=== PATIENT | female | born 1985 | race Caucasian/White ===

== ENCOUNTER → 2016-10-09 | Outpatient (CLI) | payer OTHER ==
[2012-04-07 01:58] VITALS: BP 89/53
== END ==
LOC: VAS 16:25
DX: I34.0 Nonrheumatic mitral (valve) insufficiency (principal); I07.1 Rheumatic tricuspid insufficiency

== ENCOUNTER → 2020-01-03 | Outpatient (CLI) | payer OTHER ==
[2012-04-07 01:58] VITALS: BP 89/53
[2020-01-03 08:58] LABS: EOS # 0.4 (0.04-0.40); HEMATOCRIT 41.6 % (37.0-47.0); HEMOGLOBIN 13.5 g/dL (12.5-16.0); LYMPH# 1.8 (1.50-4.00); MEAN CELL VOLUME 89 fl (78-100); MEAN CORPUSCULAR HEMOGLOBIN 29 pg (27-31); MEAN CORPUSCULAR HGB CONC 33 g/dL (33-37); MEAN PLATELET VOLUME 11.9 fl (7.4-10.4); MONO # 0.6 (0.20-0.80); NEU # 4.4 (1.40-6.50); PLATELET COUNT 151 K/mm3 (130-400); RED BLOOD COUNT 4.69 M/mm3 (4.10-5.30); RED CELL DISTRIBUTION WIDTH 12.7 % (11.5-14.5); WHITE BLOOD COUNT 7.3 K/mm3 (4.8-10.8)
[2020-01-03 09:04] LABS: POTASSIUM 4.2 mmol/L (3.5-5.1)
[2020-01-03 09:05] LABS: ALBUMIN 4.3 g/dL (3.5-5.0)
[2020-01-03 09:07] LABS: TOTAL PROTEIN 6.9 g/dL (6.4-8.3)
[2020-01-03 09:09] LABS: TOTAL BILIRUBIN 0.7 mg/dL (0.2-1.2)
[2020-01-03 09:11] LABS: URINE APPEARANCE CLEAR; URINE BILIRUBIN NEGATIVE (NEGATIVE); URINE BLOOD TRACE (NEGATIVE); URINE COLOR YELLOW; URINE GLUCOSE NEGATIVE (NEGATIVE); URINE KETONE NEGATIVE (NEGATIVE); URINE LEUKOCYTE ESTERASE NEGATIVE (NEGATIVE); URINE MUCUS PRESENT (NOT PRESENT); URINE NITRATE NEGATIVE (NEGATIVE); URINE PROTEIN(semi-quant) TRACE mg/dL (NEGATIVE); URINE UROBILINOGEN NORMAL (NORMAL)
== END ==
LOC: LAB 08:44
PROVIDERS: Nurse Practitioner Family
DX: Z01.419 Encounter for gynecological examination (general) (routine) without abnormal findings (principal); I34.1 Nonrheumatic mitral (valve) prolapse; Z86.2 Personal history of diseases of the blood and blood-forming organs and certain disorders involving the immune mechanism; E03.9 Hypothyroidism, unspecified

== ENCOUNTER → 2020-01-09 | Outpatient (CLI) | payer OTHER ==
[2012-04-07 01:58] VITALS: BP 89/53
== END ==
LOC: LAB 12:16
DX: Z20.828 Contact with and (suspected) exposure to other viral communicable diseases (principal)

== ENCOUNTER → 2020-01-09 | Outpatient (CLI) | payer OTHER ==
[2012-04-07 01:58] VITALS: BP 89/53
== END ==
LOC: VAS 15:37 → RAD 15:45
DX: I08.1 Rheumatic disorders of both mitral and tricuspid valves (principal)

== ENCOUNTER → 2020-07-28 | Outpatient (CLI) | payer OTHER ==
[2012-04-07 01:58] VITALS: BP 89/53
== END ==
LOC: LAB 15:12
DX: U07.1 COVID-19 (principal)

== ENCOUNTER → 2021-03-15 | Outpatient (CLI) | payer OTHER ==
[2021-03-15 08:22] LABS: BASO # 0.03 (0.02-0.10); EOS # 0.38 (0.04-0.40); EOS % 5.9 % (1.0-5.0); HEMATOCRIT 41.9 % (37.0-47.0); HEMOGLOBIN 13.7 g/dL (12.5-16.0); LYMPH# 1.76 (1.50-4.00); MEAN CELL VOLUME 90 fl (78-100); MEAN CORPUSCULAR HEMOGLOBIN 29 pg (27-31); MEAN CORPUSCULAR HGB CONC 33 g/dL (33-37); MEAN PLATELET VOLUME 11.5 fl (7.4-10.4); MONO # 0.57 (0.20-0.80); NEU # 3.71 (1.40-6.50); PLATELET COUNT 147 K/mm3 (130-400); RED BLOOD COUNT 4.67 M/mm3 (4.10-5.30); RED CELL DISTRIBUTION WIDTH 11.9 % (11.5-14.5); WHITE BLOOD COUNT 6.5 K/mm3 (4.8-10.8)
[2021-03-15 08:31] LABS: ALBUMIN 4.1 g/dL (3.5-5.0)
[2021-03-15 08:32] LABS: CALCIUM 9.5 mg/dL (8.3-10.5)
[2021-03-15 08:33] LABS: TOTAL PROTEIN 7.2 g/dL (6.4-8.3)
[2021-03-15 08:35] LABS: TOTAL BILIRUBIN 0.5 mg/dL (0.2-1.2)
== END ==
LOC: LAB 08:03
PROVIDERS: Nurse Practitioner Primary Care
DX: Z00.00 Encounter for general adult medical examination without abnormal findings (principal); E03.9 Hypothyroidism, unspecified

== ENCOUNTER → 2021-08-02 | Outpatient (CLI) | payer OTHER | LOC: VAS 13:54 → RAD 14:00 | DX: I34.0 Nonrheumatic mitral (valve) insufficiency (principal) ==